=== PATIENT | female | born 1995 | race Caucasian/White ===

== ENCOUNTER 2017-11-02 08:25 | Emergency (ER) | payer OTHER ==
[~2017-11-02] VITALS: Ht 165.1 cm; Wt 65.8 kg
--- NOTE | 2017-11-02 08:52 | PHYS DOC ---
Adult General Chief Complaint Chief Complaint: PAIN ON URINATION HPI HPI Patient is a 22-year-old female who presents to the emergency department for evaluation. She states that last night and this morning, she had some cramping in her lower abdomen with urination. She also states that the past few evenings , when she had intercourse, she did experiencing some burning. She has had a little bit of vaginal discharge as well. She states she has been treated for chlamydia in the past about 6 months ago. She also states that she had unprotected sex about 5 days ago and did take a dose of Plan B. She states her menstrual period ended 4 days ago. She has not had any nausea or vomiting, or any other abdominal pain. She denies any dizziness or lightheadedness. There are no alleviating, or exacerbating factors to her symptoms except as noted above. She has NOT had any urinary frequency, hesitancy, or hematuria. Review of Systems Review of Systems Constitutional: Denies fever or chills [] Eyes: Denies change in visual acuity, redness, or eye pain [] HENT: Denies nasal congestion or sore throat [] Respiratory: Denies cough or shortness of breath [] Cardiovascular: The patient denies any shortness of breath, chest pain, palpitations, or orthopnea [] GI: Denies abdominal pain, nausea, vomiting, or diarrhea [] : As per history of present illness[] Musculoskeletal: Denies back pain or joint pain [] Integument: Denies rash or skin lesions [] Neurologic: Denies headache, focal weakness or sensory changes [] Endocrine: Denies polyuria or polydipsia [] All other systems were reviewed and found to be within normal limits, except as documented in this note. Physical Exam Physical Exam PHYSICAL EXAM: CONSTITUTIONAL: Well developed, well nourished HEAD: normocephalic, atraumatic EENT: PERRL, EOMI. Conjunctivae normal color, sclerae non-icteric; moist mucous membranes. NECK: Supple, non-tender; no meningismus. LUNGS: Lungs CTA, breathing even and unlabored. Normal air movement. HEART: Regular rate and rhythm, no murmur CHEST: No deformity; non-tender ABDOMEN: The abdomen is soft, and non-tender, no masses or bruits. EXTREM: Normal ROM; no deformity, no calf tenderness. Normal pulses palpable in all extremities. There is no pedal edema. SKIN: No rash; no diaphoresis NEURO: Alert; normal speech and cognition; CN's grossly intact; strength grossly intact without focal deficit. BACK: No CVA TTP. PELVIC EXAM: Normal external genitalia, without any skin lesions noted. There is no significant amount of vaginal discharge present. There is slight yellowish discoloration to the cervix, immediately surrounding the os, and the cervix is slightly friable. There is no cervical motion tenderness, or adnexal tenderness. Exam was performed in the presence of the patient's nurse, Torie EKG EKG [] Radiology/Procedures Radiology/Procedures [] Course & Med Decision Making Course & Med Decision Making Pertinent Labs and Imaging studies reviewed. (See chart for details) [ WET PREP Final YEAST NONE SEEN TRICHOMONAS NONE SEEN CLUE CELLS NONE SEEN WBCS FEW RBCS FEW SQUAMOUS EPS MODERATE] 9:30 AM: The patient's condition remained stable. She would like to be treated presumptively for STDs, which will be done, as the yellowish discoloration of her cervix might represent an early cervicitis. 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 She states she did have a Pap smear about 4 months ago which was normal. Return precautions were discussed in detail. Dragon Disclaimer Dragon Disclaimer This electronic medical record was generated, in whole or in part, using a voice recognition dictation system. Departure Departure: Impression: Primary Impression: UTI (urinary tract infection) Additional Impression: Cervicitis Disposition: 01 HOME, SELF-CARE Condition: STABLE Referrals: JERROD CASH DO, [facility] (PCP) Patient Instructions: Cervicitis, Urinary Tract Infection Scripts Sulfamethoxazole/Trimethoprim (BACTRIM 400-80 MG TABLET) 1 Each Tablet 1 TAB PO BID, #14 TAB Prov: JN JACOBS MD 11/02/17 Problem Qualifiers JN JACOBS MD Nov 02, 2017 08:52
[2017-11-02 09:16] LABS: AMORPHOUS SEDIMENT,UR PRESENT /HPF; BACTERIA,URINE MANY /HPF (0-FEW); BILIRUBIN,URINE NEG (NEG); CLARITY,URINE CLOUDY; COLOR,URINE YELLOW; GLUCOSE,URINE NEG (NEG); NITRITE,URINE NEG (NEG); RBC,URINE >40 /HPF (0-2); SQUAMOUS EPITHELIAL CELL,UR MOD /LPF; UROBILINOGEN,URINE 0.2 mg/dL (0.2 mg/dL); WBC,URINE >40 /HPF (0-4)
[2017-11-02] MEDS ORDERED: SULF1TAB23 PO (09:35)
[2017-11-02 09:52] VITALS: BP 113/54
[2017-11-02] MEDS ORDERED: AZITHROMYCIN 250 MG TABLET. PO ONE (10:00)
[2017-11-02] MEDS ORDERED: cefTRIAXone IM 250 MG VIAL IM ONE (10:00)
[2017-11-03 16:10] LABS: CHLAMYDIA PROBE Negative (Negative)
== END 2017-11-02 10:15 | disposition home or self-care (01) ==
LOC: ER 08:25
DX: N39.0 Urinary tract infection, site not specified (principal); N72 Inflammatory disease of cervix uteri
CPT/HCPCS: 36415; 81001; 81025; 87086; 87491; 87591; 96372; 99284; J0456; J0696; Q0111

== ENCOUNTER → 2018-03-13 | Outpatient (CLI) | payer OTHER ==
[~2018-03-13] MED LIST: SULF1TAB23 PO
--- NOTE | 2018-03-13 12:43 | RAD ---
Pelvic ultrasound History: Vaginal discomfort. Infections. Comparison: None. Technique: Transabdominal ultrasound was performed to evaluate the uterine fundus. Endovaginal imaging was performed to evaluate optimally the endometrial canal and lower uterine segment. TRANSABDOMINAL IMAGING Findings: Examination is technically difficult. The uterus measures 6.8 cm in length and is unremarkable. The endometrium measures 6 mm. Ovaries are not well seen with transabdominal imaging. No gross adnexal masses are identified. ENDOVAGINAL IMAGING Findings: The uterus measures 7.0 cm in length and is unremarkable. The endometrium measures 4 mm. Right ovary is not visualized. The left ovary measures 1.7 x 1.4 x 1.5 cm and is unremarkable. Left ovary demonstrates normal vascular flow upon Doppler interrogation is without evidence of torsion. Impression: 1. Right ovary is not visualized, either with transabdominal or endovaginal imaging. 2. Otherwise, unremarkable pelvic ultrasound. Electronically signed by: Johny Jeronimo MD (03/13/2018 12:40 PM) [id number]
== END | disposition home or self-care (01) ==
LOC: US 08:00
PROVIDERS: ATTEND Family Medicine
DX: A57 Chancroid (principal); N89.8 Other specified noninflammatory disorders of vagina; Z20.2 Contact with and (suspected) exposure to infections with a predominantly sexual mode of transmission
CPT/HCPCS: 76830; 76856